=== PATIENT | female | born 1960 | race Caucasian/White ===

== ENCOUNTER 2021-08-18 06:00 | Outpatient (RCR) | payer MEDICARE, SELFPAY | END 2021-08-26 23:59 | disposition home or self-care (01) | LOC: GPT 06:00 | PROVIDERS: Referring Provider Nurse Practitioner Family; Visit Provider Nurse Practitioner Family | DX: M79.7 Fibromyalgia (principal); M62.81 Muscle weakness (generalized) | CPT/HCPCS: 97110; 97140; 97162; 97535 ==

== ENCOUNTER → 2022-06-07 08:56 | Outpatient (BNVA) | payer MEDICARE, SELFPAY | PROVIDERS: PCP Nurse Practitioner Family; Visit Provider Nurse Practitioner Family | DX: E11.9 Type 2 diabetes mellitus without complications (principal); I10 Essential (primary) hypertension | CPT/HCPCS: 80053; 80061; 82043; 83036; 84443 ==

== ENCOUNTER 2022-08-20 10:42 | Emergency (ER) | payer MEDICARE, MEDICAID, SELFPAY ==
[2022-08-20 10:45] VITALS: PULSE 81; RESP 16; TEMP 36.6; O2SAT 95; BMI 42.3
--- NOTE | 2022-08-20 11:24 | ED_ITS ---
HPI - Fall General: Chief Complaint: Fall Stated Complaint: fall, head injury, left leg pain Time Seen by Provider: 08/20/22 11:24 History of Present Illness: Ms. Evans is a 62-year-old lady with history of diabetes presented the emergency department for syncopal episode. She reports being at her baseline health and was in the shower. She reached for a towel and does not recall anything between that and waking up on the floor. Reports right-sided headache associated with contusion and also bilateral leg pain worse on the left with a bruise. Denies known preceding events. Intensity of symptoms is moderate. No other specific changes in health, exacerbating, or alleviating factors identified. Onset (ago): minute(s) Fall from: standing Place fall occurred: home Loss of consciousness: Yes Prolonged down time: unclear Symptoms prior to fall: none Location of injury: head Severity: moderate Review of Systems General: Reports: 10 or more systems reviewed and unremarkable except in HPI and below PFSH ED PFSH: Medical History Depression Diabetes Family History Father Diabetes CAD (coronary artery disease) Social History Smoking and tobacco status: never smoked Substance/Drug Use: never Physical Exam Const: COMMON NORMALS: alert GENERAL APPEARANCE: cooperative and well developed HENMT: COMMON NORMALS: normocephalic HEAD & SCALP: normocephalic OTHER: Right-sided parietal occipital contusion and hematoma, tenderness to palpation. Eye: COMMON NORMALS: conjunctivae normal CONJUNCTIVA: Yes conjunctivae normal SCLERA: sclerae normal Neck/C-Spine: COMMON NORMALS: supple GENERAL: Yes trachea midline Resp: COMMON NORMALS: clear to auscultation bilaterally EFFORT & INSPECTION: Yes able to speak in complete sentences AUSCULTATION: clear to auscultation bilaterally Cardio: COMMON NORMALS: regular rate and regular rhythm RATE: regular rate RHYTHM: regular rhythm GI: COMMON NORMALS: Soft to palpation PALPATION: Yes Soft to palpation and No Tenderness to palpation present (GI) PERCUSSION: normal to percussion Extremity: NARRATIVE EXTREMITY EXAM: Left inferior holm contusion and tenderness palpation GENERAL: Yes normal exam except as noted and No edema Neuro: COMMON NORMALS: moves all extremities SENSORIUM/ORIENTATION: Yes alert and No Orientation impaired Psych: COMMON NORMALS: mental status grossly normal and Normal thought process present THOUGHT PROCESS: Normal thought process present Course Vital Signs: Vital signs: Vital Signs Temperature 97.9 F 08/20/22 10:45 Pulse Rate 67 08/20/22 15:30 Respiratory Rate 16 08/20/22 15:30 Blood Pressure 149/76 08/20/22 15:30 Pulse Oximetry 97 08/20/22 15:30 Oxygen Delivery Me thod Room Air 08/20/22 15:30 MDM - Fall Medical Decision Making 62-year-old lady presenting with syncope and fall. Exam as above. Head to toe exam performed. EKG notable for sinus rhythm with normal axis and intervals, no STEMI. Labs with no leukocytosis, normal hemoglobin and platelet count. No significant metabolic derangement. Negative initial and repeat troponin. No convincing e vidence of UTI. Imaging ordered based on physical exam findings. No acute internal injury identified on head CT or cervical spine CT read x-ray of tibia and fibula are negative for fracture. Patient improved with analgesia. I discussed disposition/evaluation options for syncope and patient prefers outpatient management. The results of ED evaluation were discussed with the patient including pr escriptions and/or symptomatic cares (if applicable) including appropriate and responsible use, followup plan, and return precautions. The patient verbalized understanding and felt safe for discharge. Medical Records I reviewed the patient's medical records. Lab Data I reviewed the patient's lab results. 08/20/22 12:22 08/20/22 12:22 Radiology Impressions Cervical Spine CT 08/20/22 11:36 IMPRESSION: 1. No CT evidence of acute cervical spine traumatic injury. 2. Additional findings, as above. Head CT 08/20/22 11:36 IM[address]: 1[address] evidence of acute intracranial pathology. 2. Additional findings, as above. Tibia/Fibula X-Ray 08/20/22 11:36 IMPRESSION: 1. No acute findings. 2. Metallic screw in the calcaneus Laboratory Results WBC 9.7 10^3/uL (4.0-10.0) 08/20/22 12:22 RBC 3.90 10^6/uL (4.1-5.3) L 08/20/22 12:22 Hgb 11.7 g/dL (11.5-15.3) 08/20/22 12:22 Hct 38.2 % (37.0-47.0) 08/20/22 12:22 MCV 97.9 fl (81-99) 08/20/22 12:22 MCH 30.0 pg (28.0-34.0) 08/20/22 12:22 MCHC 30.6 g/dL (30.0-36.0) 08/20/22 12:22 RDW 13.4 % (12.1-15.1) 08/20/22 12:22 Plt Count 172 10^3/cmm (130-400) 08/20/22 12:22 MPV 11.7 fL (7.4-10.4) H 08/20/22 12:22 Neut % (Auto) 80.2 % 08/20/22 12:22 Lymph % (Auto) 9.5 % 08/20/22 12:22 [place] % (Auto) 6.6 % 08/20/22 12:22 Eos % (Auto) 2.8 % 08/20/22 12:22 Baso % (Auto) 0.5 % 08/20/22 12:22 Neut # (Auto) 7.73 10^3/uL (1.8-7.7) H 08/20/22 12:22 Lymph # (Auto) 0.9 10^3/uL (0.8-4.8) 08/20/22 12:22 [place] # (Auto) 0.6 10^3/uL (0.2-0.9) 08/20/22 12:22 Eos # (Auto) 0.3 10^3/uL (0.0-0.8) 08/20/22 12:22 Baso # (Auto) 0.1 10^3/uL (0.0-0.1) 08/20/22 12:22 Nucleated RBC % (auto) 0 % 08/20/22 12:22 Nucleated RBCs # 0.0 /100WBC 08/20/22 12:22 Sodium 140 mmol/L (136-145) 08/20/22 12:22 Potassium 4.6 mmol/L (3.5-5.1) 08/20/22 12:22 Chloride 101 mmol/L (98-107) 08/20/22 12:22 Carbon Dioxide 26 mmol/L (22-29) 08/20/22 12:22 Anion Gap 17.6 (5-19) 08/20/22 12:22 BUN 19 mg/dL (8-23) 08/20/22 12:22 Creatinine 0.8 mg/dL (0.5-0.9) 08/20/22 12:22 GFR Calculation 72.7 mL/min (90-130) L 08/20/22 12:22 Glucose 145 mg/dL (65-115) H 08/20/22 12:22 Calculated Osmolality 295 mOsm/kg (285-295) 08/20/22 12:22 Calcium 9.2 mg/dL (8.5-10.5) 08/20/22 12:22 Magnesium 1.9 mg/dL (1.7-2.3) 08/20/22 12:22 Troponin T Baseline 6 ng/L (0-10) 08/20/22 12:22 Troponin T 120 Minute 6.00 ng/L (0-10) 08/20/22 14:13 Delta Troponin T 0 ABS# (0-10) 08/20/22 14:13 Discharge Plan Discharge Patient Disposition: Home Clinical Impression: Syncope, Contusion of left leg, Closed head injury, Hematoma of right parietal scalp Condition: Stable Prescriptions: New ondansetron 4 mg tablet,disintegrating 4 mg PO Q8H PRN (Reason: nausea and vomiting) Qty: 15 0RF oxycodone 5 mg tablet 5 mg PO Q4H PRN (Reason: pain) Qty: 10 0RF No Action dexlansoprazole [Dexilant] 60 mg capsule,biphase delayed releas 60 mg PO DAILY metformin 1,000 mg tablet 1,000 mg PO BID Januvia 100 mg tablet 100 mg PO DAILY hydrochlorothiazide 25 mg tablet 25 mg PO QAM pravastatin 20 mg tablet 20 mg PO DAILY meloxicam 15 mg tablet 15 mg PO DAILY sertraline 100 mg tablet 100 mg PO DAILY gabapentin 300 mg capsule 300 mg PO DAILY aspirin 81 mg tablet,delayed release (DR/EC) 81 mg PO DAILY insulin degludec [Tresiba FlexTouch U-200] 200 unit/mL (3 mL) insulin pen 56 unit SUBCUT BID Qty: 18 11RF cyclobenzaprine 10 mg tablet 10 mg PO TID Qty: 30 0RF losartan 100 mg tablet 100 mg PO DAILY Qty: 90 3RF Osteo Bi-Flex Triple Strength 750 mg-644 mg- 30 mg-1 mg Tablet 1 tab PO DAILY Discharge Orders: Discharge ED (Routine); Ordered 08/20/22 Ordered By: Steve Arndt Other Ambulatory Orders: ECG holter monitor 7 Days (Routine) Timeframe: 3 Days Facility: [facility] - Location: Radiology Ordered By: Steve Arndt Referrals: Dalia Osorio, [employer] [Primary Care Provider] - Discharge Diet: Usual diet Discharge Activity: Increase activity as tolerated Patient Instructions: Syncope (ED), Head Injury (ED), Contusion in Adults (ED), Opioid Safety Activity Restrictions/Additional Instructions: Thank you for visiting the emergency department. You were seen and evaluated for syncope. The exact cause your symptoms is unclear as discussed however does require outpatient management and follow-up. Please follow-up with your primary care provider. I will order an outpatient Holter monitor. You may use [id number] medications such as acetaminophen and ibuprofen for pain however please do not exceed the daily recommended dosage as listed on the packaging and please keep in mind that many namebrand medications contain the same active ingredients. Please avoid these medications if previously instructed to do so by another physician due to other underlying medical condition. I will prescribe oxycodone for uncontrolled pain. Use this cautiously and do not combine it with other sedating medications or substances. Return for uncontrolled symptoms, recurrent syncope, chest pain, shortness of breath, or anything else that you are concerned about and feel needs emergency department evaluation. Coding Level of Care Code ED Music Adapter for Nely Pulido
--- NOTE | 2022-08-20 11:36 | XRR_ITS ---
PROCEDURE INFORMATION: Exam: XR Left Tibia and Fibula Exam date and time: 08/20/2022 11:46 AM Age: 62 years old Clinical indication: Injury or trauma; Fall; Blunt trauma; Lower leg; Left; Additional info: Fall, contusion TECHNIQUE: Imaging protocol: Radiologic exam of the left tibia and fibula. Views: 2 views. COMPARISON: No relevant prior studies available. FINDINGS: Bones/joints: Metallic screw is seen in the calcaneus. Otherwise negative for acute bony abnormality. Soft tissues: Normal. XR/XR tibia fibula LT 2V [id number] IMPRESSION: 1. No acute findings. 2. Metallic screw in the calcaneus
--- NOTE | 2022-08-20 11:36 | CTR_ITS ---
PROCEDURE INFORMATION: Exam: CT Head Without Contrast Exam date and time: 08/20/2022 11:49 AM Age: 62 years old Clinical indication: Injury or trauma; Fall; Blunt trauma (contusions or hematomas); With loss of consciousness; Loss of consciousness for 30 minutes or less; Additional info: Syncope, R head strike TECHNIQUE: Imaging protocol: Computed tomography of the head without contrast. Axial, coronal and sagittal reformatted images were created and reviewed. Radiation optimization: All CT scans at this facility use at least one of these dose optimization techniques: automated exposure control; mA and/or kV adjustment per patient size (includes targeted exams where dose is matched to clinical indication); or iterative reconstruction. REPORTING DATA: Count of CT and Cardiac NM exams in prior 12 months: This patient has received 0 known CTs and 0 known cardiac nuclear medicine studies in the 12 months prior to the current study. COMPARISON: No relevant prior studies available. RADIATION DOSE METRICS: Total DLP (mGy-cm): 898.93 FINDINGS: Brain: Patchy areas of hypoattenuation in the periventricular and subcortical white matter, consistent with chronic small vessel ischemic disease. No CT evidence of acute intracranial hemorrhage or acute territorial infarction. No significant mass effect or midline shift. Basal cisterns patent. Cerebral ventricles: Prominence of the cortical sulci, cisterns and ventricular system, consistent with cerebral and cerebellar volume loss. Paranasal sinuses: Unremarkable. No fluid levels. Mastoid air cells: Grossly unremarkable. Bones/joints: No acute osseous abnormality. Soft tissues: Right parieto-occipital scalp swelling. Vasculature: Calcific atherosclerotic disease in the cavernous internal carotid arteries. CT/CT head wo con* [id number] IMPRESSION: 1. No CT evidence of acute intracranial pathology. 2. Additional findings, as above.
--- NOTE | 2022-08-20 11:36 | CTR_ITS ---
PROCEDURE INFORMATION: Exam: CT Cervical Spine Without Contrast Exam date and time: 08/20/2022 11:49 AM Age: 62 years old Clinical indication: Injury or trauma; Fall; Blunt trauma; Additional info: Syncope TECHNIQUE: Imaging protocol: Computed tomography of the cervical spine without contrast. Axial, coronal and sagittal reformatted images were created and reviewed. Radiation optimization: All CT scans at this facility use at least one of these dose optimization techniques: automated exposure control; mA and/or kV adjustment per patient size (includes targeted exams where dose is matched to clinical indication); or iterative reconstruction. REPORTING DATA: Count of CT and Cardiac NM exams in prior 12 months: This patient has received 0 known CTs and 0 known cardiac nuclear medicine studies in the 12 months prior to the current study. COMPARISON: No relevant prior studies available. RADIATION DOSE METRICS: Total DLP (mGy-cm): 520.9 FINDINGS: Bones/joints: Osteopenia. Straightening of the normal cervical lordosis. No CT evidence of acute fracture, dislocation or subluxation. Alignment anatomic. Vertebral body heights maintained. Mild multilevel degenerative changes, characterized by disc space narrowing, osteophytosis and uncovertebral and facet joint hypertrophy. Mild multilevel spinal canal and neural foraminal narrowing. Lungs: Grossly unremarkable. Soft tissues: Grossly unremarkable. CT/CT cervical spin wo con* [id number] IMPRESSION: 1. No CT evidence of acute cervical spine traumatic injury. 2. Additional findings, as above.
--- NOTE | 2022-08-20 12:02 | ECG_ITS ---
[facility] Test Date: 2022-08-20 Pat Name: Ashly Evans Department: Room: Gender: Female [employer] Operator: : 1960 Requested By: Steve Arndt Order Number: [id number] Cerna MD: Sean Valadez M.D. Measurements Intervals [place] Rate: 77 P: 54 [place]: 184 QRS: 58 QRSD: 93 T: 57 QT: 379 QTc: 430 Interpretive Statements SINUS RHYTHM No previous ECG available for comparison Electronically Signed On 08-20-2022 12:27:50 CDT by Sean Valadez M.D. [id number]
[2022-08-20 12:32] VITALS: RESP 16
[2022-08-20] MEDS: morphine 4 mg/mL SDV 1 mL IVP (12:32)
[2022-08-20 12:55] LABS: Basophils # 0.1 10^3/uL (0.0-0.1); Basophils % 0.5 %; Eosinophils # 0.3 10^3/uL (0.0-0.8); Eosinophils % 2.8 %; Hematocrit 38.2 % (37.0-47.0); Hemoglobin 11.7 g/dL (11.5-15.3); Lymphocytes # 0.9 10^3/uL (0.8-4.8); Lymphocytes % 9.5 %; Mean Corpuscular HGB Conc 30.6 g/dL (30.0-36.0); Mean Corpuscular Volume 97.9 fl (81-99); Mean Platelet Volume 11.7 fL (7.4-10.4); Monocytes # 0.6 10^3/uL (0.2-0.9); Monocytes % 6.6 %; Neutrophils # 7.73 10^3/uL (1.8-7.7); Neutrophils % 80.2 %; Nucleated Red Blood Cells % 0 %; Platelet Count 172 10^3/cmm (130-400); Red Cell Distribution Width 13.4 % (12.1-15.1); White Blood Count 9.7 10^3/uL (4.0-10.0)
[2022-08-20 13:19] LABS: Blood Urea Nitrogen 19 mg/dL (8-23); Calcium 9.2 mg/dL (8.5-10.5); Carbon Dioxide 26 mmol/L (22-29); Chloride 101 mmol/L (98-107); Glomerular Filtration Rate 72.7 mL/min (90-130); Glucose 145 mg/dL (65-115); Magnesium 1.9 mg/dL (1.7-2.3); Osmolality Calculated 295 mOsm/kg (285-295); Sodium 140 mmol/L (136-145)
[2022-08-20 13:21] LABS: Anion Gap 17.6 (5-19); Potassium 4.6 mmol/L (3.5-5.1)
[2022-08-20 13:24] LABS: Troponin(5th) Baseline 6 ng/L (0-10)
--- NOTE | 2022-08-20 13:36 | ECG_ITS ---
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 Measurements Intervals [place] Rate: 75 P: 58 [place]: 177 QRS: 66 QRSD: 105 T: 63 QT: 404 QTc: 454 Interpretive Statements SINUS RHYTHM Compared to ECG 08/20/2022 12:02:31 No significant changes Electronically Signed On 08-20-2022 14:12:25 CDT by Sean Valadez M.D. [id number]
[2022-08-20 15:30] VITALS: BP 149/76; PULSE 67; RESP 16; O2SAT 97
[2022-08-20 15:36] LABS: Troponin 5 2HR Delta 0 ABS# (0-10)
== END 2022-08-20 16:01 | disposition home or self-care (01) ==
PROVIDERS: Emergency Provider Emergency Medicine; PCP Nurse Practitioner Family
DX: R55 Syncope and collapse (principal); S09.8XXA Other specified injuries of head, initial encounter; S80.12XA Contusion of left lower leg, initial encounter; S00.03XA Contusion of scalp, initial encounter; Z79.82 Long term (current) use of aspirin; Z79.4 Long term (current) use of insulin; Z79.84 Long term (current) use of oral hypoglycemic drugs; E11.9 Type 2 diabetes mellitus without complications; W18.39XA Other fall on same level, initial encounter
CPT/HCPCS: 36415; 70450; 72125; 73590; 80048; 83735; 84484; 85025; 93005; 96374; 99285; J2270

== ENCOUNTER → 2022-08-24 09:41 | Outpatient (BNVA) | payer MEDICARE, MEDICAID, SELFPAY | PROVIDERS: PCP Nurse Practitioner Family; Visit Provider Family Medicine | DX: R31.9 Hematuria, unspecified (principal); I10 Essential (primary) hypertension; E11.9 Type 2 diabetes mellitus without complications; Z68.41 Body mass index [BMI] 40.0-44.9, adult | CPT/HCPCS: 81003 ==

== ENCOUNTER → 2022-10-27 09:42 | Outpatient (BNVA) | payer MEDICARE, MEDICAID, SELFPAY | PROVIDERS: PCP Nurse Practitioner Family; Visit Provider Nurse Practitioner Family | DX: R30.0 Dysuria (principal); R41.82 Altered mental status, unspecified; N39.0 Urinary tract infection, site not specified; R31.9 Hematuria, unspecified | CPT/HCPCS: 81003; 87077; 87086; 87184 ==

== ENCOUNTER → 2022-11-15 10:20 | Outpatient (BNVA) | payer MEDICARE, MEDICAID, SELFPAY | PROVIDERS: PCP Nurse Practitioner Family; Visit Provider Nurse Practitioner Family | DX: N39.0 Urinary tract infection, site not specified (principal); R31.9 Hematuria, unspecified; E11.9 Type 2 diabetes mellitus without complications | CPT/HCPCS: 81003; 83036 ==

== ENCOUNTER 2022-11-24 13:26 | Outpatient (CLI) | payer MEDICARE, MEDICAID, SELFPAY ==
--- NOTE | 2022-11-24 13:31 | XR_ITS ---
WS: [email or web address] Lumbar spine, 3 views, 11/24/2022 Clinical Data: W19.XXXA - Unspecified fall, initial encounter Comparison: None. Findings: There is a compression fracture of the L1 vertebral body with loss of greater than 50% of the vertebr al body height. There are osteophytes of all the lumbar vertebral bodies. There is disc narrowing at T12-L1. There is osteoporosis of all the lumbar vertebral bodies. There are post surgical cholecystec tamir clips in the right upper quadrant. Impression: 1. Compression fracture of L1 vertebral body involving more than 50% of the vertebral body height. 2. Diffuse osteoarthritis and osteoporosis. 3. Degenerative disc narrowing at T12-L1.
--- NOTE | 2022-11-24 13:31 | XR_ITS ---
WS: [email or web address] Bilateral hips, 2 views each, 11/24/2022 Clinical Data: W19.XXXA - Unspecified fall, initial encounter Comparison: None. Findings: Right hip: No fractures or dislocations are seen. The right hip joint shows no erosion, sclerosis, narrowing or fragmentation of the right femoral head. There is a right acetabular lip. The soft tissues are normal . Left hip: There are no fractures or dislocations. The left hip joint shows no erosion, sclerosis, narrowing or fragmentation of the left femoral head. There is a small left acetabular lip. The soft tissues are no rmal. Impression: Mild osteoarthritis of both hips.
--- NOTE | 2022-11-24 13:31 | XR_ITS ---
WS: [email or web address] Thoracic spine, 3 views, 11/24/2022 Clinical Data: W19.XXXA - Unspecified fall, initial encounter Comparison: None. Findings: No thoracic compression fractures are seen. There is a compression fracture of the superior aspect of the L1 vertebral body with disc narrowing at T12-L1 the disc heights are normal. There is osteoarthritis of all the thoracic vertebral bodies. There are soft tissue densities through out both lungs which are probably granulomas. Impression: 1. Negative for thoracic compression fractures. 2. Possible L1 compression fracture. 3. Probable granulomatous in both lungs. 4. Osteoarthritis of the thoracic vertebral bodies.
== END 2022-11-24 13:27 | disposition home or self-care (01) ==
PROVIDERS: PCP Nurse Practitioner Family; Visit Provider Nurse Practitioner Family
DX: M54.6 Pain in thoracic spine (principal); M47.894 Other spondylosis, thoracic region; M81.0 Age-related osteoporosis without current pathological fracture; M54.50 Low back pain, unspecified; M16.0 Bilateral primary osteoarthritis of hip
CPT/HCPCS: 72072; 72100; 73523

== ENCOUNTER → 2022-12-06 08:54 | Outpatient (BNVA) | payer MEDICARE, MEDICAID, SELFPAY | PROVIDERS: PCP Nurse Practitioner Family; Referring Provider Nurse Practitioner Family; Visit Provider Orthopaedic Surgery | DX: S22.089A Unspecified fracture of T11-T12 vertebra, initial encounter for closed fracture (principal); X58.XXXA Exposure to other specified factors, initial encounter | CPT/HCPCS: 72100; 99204 ==

== ENCOUNTER 2022-12-07 15:34 | Outpatient (CLI) | payer MEDICARE, MEDICAID, SELFPAY ==
--- NOTE | 2022-12-07 16:00 | MR_ITS ---
WS: [email or web address] MRI THORACIC SPINE WITHOUT CONTRAST TECHNIQUE: Sagittal T1, T2 and STIR imaging. Axial T2 imaging. Noncontrast imaging obtained. CLINICAL INFORMATION: compression fracture COMPARISON: Radiograph 11/24/2022 FINDINGS: Counting performed from the craniocervical junction. Mild thoracic kyphosis. Acute compression fracture superior T12 with diffuse edema. Minimal retropuls ion of the posterior superior cortex results in mild central canal stenosis. No high-grade central ca nal narrowing. Cord signal appears normal. Loss of approximately 20% vertebral body height. No other acute appearing compression fractures. A few tiny disc protrusions in the mid thoracic spine. Normal caliber thoracic aorta. Moderate facet arthropathy lower thoracic spine. Small disc protrusion s in the cervical spine on the client support professional imaging at C3-C4 and C4-C5. IMPRESSION: Counting performed from the craniocervical junction. 1. Acute compression fracture involving the T12 vertebral body with mild retropulsion of the posteri or superior cortex with mild central canal stenosis. Loss of approximate 20% vertebral body height. 2. Diffuse edema in the T12 vertebral body with fracture cleft in the superior endplate and edema in the T11-T12 disc space. 3. No other acute appearing compression fractures. 4. Cord signal is normal.
--- NOTE | 2022-12-07 16:45 | MR_ITS ---
WS: [email or web address] MRI LUMBAR SPINE NONCONTRAST TECHNIQUE: Sagittal T1, T2 and STIR imaging. Axial T1 and T2 imaging. CLINICAL INFORMATION: compression fracture COMPARISON: None. FINDINGS: Mild lumbar curve. Acute compression of T12 vertebral body superior endplate with diffuse edema also described on the concurrent MRI thoracic spine with loss of approximately 20% vertebral body height. Fracture cleft in the superior endplate with edema in the T11-T12 disc space. No high-grade central c anal stenosis. Grade 1 anterolisthesis L5 on S1 with chronic bilateral spondylolysis with slight ante rolisthesis. L1-L2: Mild disc bulging. Slight effacement of the ventral thecal sac. Mild facet arthropathy. Spinal canal and foramen are patent. L2-L3: Mild disc bulging with slight effacement of the ventral thecal sac. Mild facet arthropathy. Mi ld RIGHT greater than LEFT foraminal narrowing. L3-L4: Mild annular bulging. Slight effacement of the ventral thecal sac. Slight impingement traversi ng L4 nerve roots bilaterally. Mild central canal stenosis. Moderate facet arthropathy. Mild LEFT gre ater than RIGHT foraminal narrowing. L4-L5: Mild annular bulging. Impingement on the RIGHT subarticular recess and traversing RIGHT L5 ner ve root. Mild RIGHT and no significant LEFT foraminal narrowing. Moderate facet arthropathy. L5-S1: Chronic spondylolysis with slight anterolisthesis. Mild annular bulging. Slight effacement of the ventral thecal sac. Mild bilateral foraminal narrowing. Moderate facet arthropathy. Visualized pelvic bony structures: Normal. Paravertebral soft tissues: Normal. IMPRESSION: 1. Acute compression fracture T12 vertebral body also described on thoracic spine MRI. 2. Grade 1 anterolisthesis L5 on S1 with chronic bilateral spondylolysis and slight anterolisthesis 3. Mild central canal stenosis L3-4 with narrowing of the subarticular recess bilaterally. 4. Broad-based RIGHT paracentral protrusion L4-5 impinges the traversing RIGHT L5 nerve root in the subarticular recess. 5. Moderate facet arthropathy L3-L5. 6. Otherwise mild foraminal narrowing described above.
== END 2022-12-07 15:35 | disposition home or self-care (01) ==
PROVIDERS: PCP Nurse Practitioner Family; Visit Provider Orthopaedic Surgery
DX: S22.080A Wedge compression fracture of T11-T12 vertebra, initial encounter for closed fracture (principal); S32.000A Wedge compression fracture of unspecified lumbar vertebra, initial encounter for closed fracture; W19.XXXA Unspecified fall, initial encounter; M51.34 Other intervertebral disc degeneration, thoracic region; M51.36 Other intervertebral disc degeneration, lumbar region; R52 Pain, unspecified; M43.07 Spondylolysis, lumbosacral region; M48.07 Spinal stenosis, lumbosacral region; M48.04 Spinal stenosis, thoracic region
CPT/HCPCS: 72146; 72148

== ENCOUNTER → 2022-12-13 09:47 | Outpatient (BNVA) | payer MEDICARE, MEDICAID, SELFPAY | PROVIDERS: PCP Nurse Practitioner Family; Visit Provider Orthopaedic Surgery | DX: M54.9 Dorsalgia, unspecified; E11.9 Type 2 diabetes mellitus without complications; S32.000A Wedge compression fracture of unspecified lumbar vertebra, initial encounter for closed fracture; X58.XXXA Exposure to other specified factors, initial encounter | CPT/HCPCS: 36415; 80053; 81001; 83036; 85025; 99214 ==

== ENCOUNTER → 2022-12-28 10:14 | Outpatient (BNVA) | payer MEDICARE, MEDICAID, SELFPAY | PROVIDERS: PCP Nurse Practitioner Family; Visit Provider Family Medicine | DX: Z01.818 Encounter for other preprocedural examination (principal) | CPT/HCPCS: 80048 ==

== ENCOUNTER 2022-12-30 05:44 | Day surgery (SDC) | payer MEDICARE, MEDICAID, SELFPAY ==
[2022-12-30] VITALS (10 sets, daily range): BP systolic 124–195; BP diastolic 73–121; PULSE 64–102; RESP 15–23; TEMP 36.1–36.2; O2SAT 92–96; BMI 42.3
--- NOTE | 2022-12-30 05:49 | SC_ITS ---
WS: [email or web address] C-ARM RADIOGRAPHS THORACOLUMBAR REGION.; 5 IMAGES HISTORY: Thoracic 12 kyphoplasty COMPARISON: MRI 12/07/2022 Kyphoplasty has been performed at what is probably the T12 vertebral body. IMPRESSION: Intraoperative kyphoplasty performed at T12.
[2022-12-30] MEDS: sodium chloride 0.9% 1,000 ML 30 ML IV (06:14)
[2022-12-30] MEDS: vancomycin 1,000 MG in sodium chloride 0.9% 250 ML 250 MG IV (06:17)
[2022-12-30 06:19] LABS: Glucose Point of Care 133 mg/dL (70-110)
--- NOTE | 2022-12-30 06:33 | W.PM.OPSUD ---
Surgery/Procedure H&P Update DATE OF PROCEDURE: December 30, 2022 DATE H&P PERFORMED: 12/28/22 H&P UPDATE INFORMATION: I have reviewed H&P completed within last 30 days, I have examined patient prior to procedure and No changes to prior documentation PREOP DIAGNOSIS: Thoracic 12 compression fracture PLANNED PROCEDURE: Operation Date: 12/30/22 07:00 Proposed Procedures p T12 Kyphoplasty with Osteocool(Not Applicable) - Will Coffey DO
--- NOTE | 2022-12-30 06:54 | ANES.PREANE2 ---
Pre-Anesthetic Assessment Height/Weight: Height 1.88 m Weight 149.685 kg Temp Pulse Resp BP Pulse Ox O2 Del Method 97.2 F L 86 16 131/90 95 Room Air 12/30/22 06:02 12/30/22 06:02 12/30/22 06:02 12/30/22 06:19 12/30/22 06:02 12/30/22 06:02 Preop Diagnosis: Thoracic 12 compression fracture Operation Date: 12/30/22 07:00 Proposed Procedures p T12 Kyphoplasty with Osteocool(Not Applicable) - Will Coffey DO Familial anesthetic complications: None Was Beta Pauly taken within 24 hours: N/A Was Clonidine taken within 24 hours: N/A Last intake: Intake Last Liquid Date 12/29/22 Last Liquid Time 21:30 Last Solid Date 12/29/22 Last Solid Time 21:00 Social No alcohol and No tobacco Exam alert, oriented x 3, clear to auscultation bilaterally and regular rate & rhythm Airway Mallampati: Class IV Dentition: full Pulmonary Sleep Apnea CV/HEM Hypertension Metabolic Diabetes Mellitus and Morbid Obesity Neuropsych tremors Anesthetic Plan ASA status: 3 Anesthesia: General Risk of > 500 ml blood loss (7ml/kg in children): No Medications/Allergies Home Medications Medication Instructions Recorded Confirmed Last Taken Type aspirin 81 mg tablet,delayed 81 mg PO DAILY 06/01/22 12/29/22 12/27/22 History release hydrochlorothiazide 25 mg tablet 25 mg PO QAM 06/01/22 12/30/22 12/29/22 07:00 History metformin 1,000 mg tablet 1,000 mg PO BID 06/01/22 12/30/22 12/29/22 07:00 History pravastatin 20 mg tablet 20 mg PO DAILY 06/01/22 12/29/22 12/23/22 History sertraline 100 mg tablet 100 mg PO DAILY 06/01/22 12/30/22 12/29/22 17:00 History losartan 100 mg tablet 100 mg PO DAILY #90 tabs 07/21/22 12/30/22 12/29/22 07:00 Rx glucosamine 750 [id number] 1 tab PO DAILY 08/20/22 12/29/22 12/16/22 History no1 644 mg-C 30 mg-francine 1 mg tablet (Osteo Bi-Flex Triple Strength) ondansetron 4 mg disintegrating 4 mg PO Q8H PRN nausea and 08/20/22 12/29/22 Unknown Rx tablet vomiting #15 tabs cyclobenzaprine 10 mg tablet 10 mg PO TID #30 tabs 12/05/22 12/29/22 12/27/22 Rx tramadol 50 mg tablet 50 mg PO Q6H PRN pain #20 tabs 12/05/22 12/29/22 Unknown Rx dexlansoprazole 60 mg 60 mg PO DAILY #90 caps 12/12/22 12/30/22 12/29/22 17:00 Rx capsule,biphase delayed release (Dexilant) gabapentin 300 mg capsule 300 mg PO BID #180 caps 12/12/22 12/30/22 12/29/22 17:00 Rx meloxicam 15 mg tablet 15 mg PO DAILY #90 tabs 12/12/22 12/29/22 12/23/22 Rx semaglutide 0.25 mg or 0.5 mg (2 0.25 mg (0.368 mL) SUBCUT .weekly 12/12/22 12/30/22 12/22/22 Rx mg/3 mL) subcutaneous pen injector 1 month #3 mL (Ozempic) insulin degludec 200 unit/mL (3 58 unit SUBCUT BID 12/28/22 12/30/22 12/29/22 17:00 History mL) subcutaneous pen (Tresiba FlexTouch U-200 insulin) Allergies Allergy/AdvReac Type Severity Reaction Status Date / Time Penicillins Allergy ALGY-Anaphy Verified 12/30/22 05:55 laxis pregabalin [From Lyrica] Allergy ADR/ALGY-Pa Verified 12/30/22 05:55 lpitations Current Medications Generic Name Dose Route Start Last Admin Trade Name Freq PRN Reason Stop Dose Admin Sodium Chloride 1,000 mls @ 30 mls/hr 12/30/22 06:00 12/30/22 06:14 Sodium Chloride 0.9% IV 12/31/22 05:59 30 mls/hr .Q24H ANDREIA Administration PFSH Anesthesia Medical History Depression Diabetes Fibromyalgia Family History Father Diabetes CAD (coronary artery disease) Social History Smoking and tobacco/nicotine status: never used tobacco/nicotine Substance/Drug Use: never Data Anesthesia Cardiac Studies: No Data to Display
[2022-12-30] MEDS: iohexol 300 mg/mL 50 mL Btl 15 ML IV (07:43)
[2022-12-30] MEDS: lidocaine-epi 1% PF 1:200,000 30 mL SDV INJECTION (07:45)
--- NOTE | 2022-12-30 08:12 | PM.OP ---
Operative Report Date of procedure: December 30, 2022 Pre-op diagnosis: T12 wedge osteoporotic compression fracture Post-op diagnosis: same Procedure done: T12 kyphoplasty Surgeon: Will Coffey DO Estimated blood loss (mL): 5 Procedure: T12 kyphoplasty Patient was brought to the operative suite after going anesthesia placed in the prone position. All areas impingement well-padded. The biplanar fluoroscopy was brought in the T12 vertebrae was aligned. The patient was then prepped and draped normal sterile fashion. Skin incision made over both the right and left pedicle. The awl was inserted and followed by the drill followed by the balloon this was done bilaterally. The vertebra was then filled with cement watching in AP and lateral fluoroscopy. Once the vertebrae had good fill the tubes were pulled out. And then AP and lateral fluoroscopy ensured that the cement was in good position. Wounds were irrigated closed with nylon suture. Sterile dressings were applied patient was transferred to the PACU in stable condition.
[2022-12-30] MEDS: HYDROcodone-acetaminophen 5-325 mg Tablet 1 TAB PO (08:55)
--- NOTE | 2022-12-30 09:08 | SUR.PHASEII ---
Patient arrived from PACU with a headache, VS within normal range, no other issues
--- NOTE | 2022-12-30 09:35 | ANE.PACU2 ---
Inpatient post-anesthesia follow up: Airway intact: Yes Vital signs: Temperature 97.0 F Pulse Rate 64 Respiratory Rate 16 Blood Pressure 124/73 Pulse Oximetry 93 Oxygen Delivery Me thod Room Air Oxygen Flow Rate 1 Fraction of Inspir ed Oxygen Hydration adequate: Yes Nausea and vomiting: No Pain level: 1 Mental status: Baseline
--- NOTE | 2022-12-30 10:50 | SUR.PHASEII ---
Called patient back after discharged to inform her of correct appointment time. The card with appointment given to her from clinic and scheduled appointment in computer were different dates and times.
== END 2022-12-30 09:38 | disposition home or self-care (01) ==
PROVIDERS: PCP Nurse Practitioner Family; Visit Provider Orthopaedic Surgery
PROC: (CPT 22513; principal; 2022-12-30 07:00)
DX: S22.080A Wedge compression fracture of T11-T12 vertebra, initial encounter for closed fracture (principal); X58.XXXA Exposure to other specified factors, initial encounter; G47.30 Sleep apnea, unspecified; I10 Essential (primary) hypertension; E11.9 Type 2 diabetes mellitus without complications; E66.01 Morbid (severe) obesity due to excess calories; Z68.41 Body mass index [BMI] 40.0-44.9, adult; Z79.82 Long term (current) use of aspirin; Z79.4 Long term (current) use of insulin
CPT/HCPCS: 22513; 36416; 76000; 82962; J1100; J2405; J2704; J3010; J3370; J3490; J7030; J7050; Q9967

== ENCOUNTER → 2023-01-10 13:39 | Outpatient (BNVA) | payer MEDICARE, MEDICAID, SELFPAY | PROVIDERS: PCP Nurse Practitioner Family; Visit Provider Orthopaedic Surgery | DX: Z47.89 Encounter for other orthopedic aftercare (principal) | CPT/HCPCS: 99024; 99212 ==

== ENCOUNTER → 2023-02-01 14:28 | Outpatient (BNVA) | payer MEDICARE, MEDICAID, SELFPAY | PROVIDERS: PCP Nurse Practitioner Family; Visit Provider Nurse Practitioner Family | DX: R30.0 Dysuria (principal); N30.00 Acute cystitis without hematuria | CPT/HCPCS: 81003; 87077; 87086; 87184 ==

== ENCOUNTER → 2023-02-14 09:30 | Outpatient (BNVA) | payer MEDICARE, MEDICAID, SELFPAY | PROVIDERS: PCP Nurse Practitioner Family; Visit Provider Nurse Practitioner Family | DX: E11.9 Type 2 diabetes mellitus without complications (principal); N30.00 Acute cystitis without hematuria | CPT/HCPCS: 83036 ==

== ENCOUNTER → 2023-02-16 10:53 | Outpatient (BNVA) | payer MEDICARE, MEDICAID, SELFPAY | PROVIDERS: PCP Nurse Practitioner Family; Visit Provider Orthopaedic Surgery | DX: Z47.89 Encounter for other orthopedic aftercare (principal) | CPT/HCPCS: 99213 ==

== ENCOUNTER 2023-04-04 06:00 | Outpatient (RCR) | payer MEDICARE, MEDICAID, SELFPAY | END 2023-04-26 23:59 | disposition home or self-care (01) | LOC: GPT 06:00 | PROVIDERS: Visit Provider Physician Assistant | DX: M25.512 Pain in left shoulder (principal); G89.29 Other chronic pain | CPT/HCPCS: 97110; 97112; 97140; 97162 ==

== ENCOUNTER → 2023-05-20 12:47 | Outpatient (BNVA) | payer MEDICARE, MEDICAID, SELFPAY | PROVIDERS: PCP Nurse Practitioner Family; Visit Provider Family Medicine | DX: R39.9 Unspecified symptoms and signs involving the genitourinary system (principal) | CPT/HCPCS: 81000 ==

== ENCOUNTER → 2023-07-18 09:15 | Outpatient (BNVA) | payer MEDICARE, MEDICAID, SELFPAY | PROVIDERS: PCP Nurse Practitioner Family; Visit Provider Nurse Practitioner Family | DX: I10 Essential (primary) hypertension (principal); E11.9 Type 2 diabetes mellitus without complications; N39.0 Urinary tract infection, site not specified; L98.9 Disorder of the skin and subcutaneous tissue, unspecified | CPT/HCPCS: 80053; 80061; 81000; 83036 ==

== ENCOUNTER → 2023-08-04 07:55 | Outpatient (BNVA) | payer MEDICARE, MEDICAID, SELFPAY | PROVIDERS: PCP Nurse Practitioner Family; Visit Provider Nurse Practitioner Family | DX: D48.5 Neoplasm of uncertain behavior of skin (principal); D22.62 Melanocytic nevi of left upper limb, including shoulder; L81.4 Other melanin hyperpigmentation; L57.8 Other skin changes due to chronic exposure to nonionizing radiation; L57.0 Actinic keratosis | CPT/HCPCS: 11102; 17000; 99203 ==

== ENCOUNTER 2023-08-08 13:00 | Outpatient (CLI) | payer MEDICARE, MEDICAID, SELFPAY ==
--- NOTE | 2023-08-08 13:30 | XR_ITS ---
WS: [id number] SCREENING DEXA SCAN [facility] CLINICAL INFORMATION: S32.000A - Wedge compression fracture of unspecified lumb... COMPARISON: None. FINDINGS: The LEFT forearm bone mineral density measures 0.91. This corresponds to a T score score of 0.4 and Z score of 1.6. Left femoral neck bone mineral density measures 0.974 g/cm2. This corresponds to a T score of -0.3 an d Z score of 0.0. Right femoral neck bone mineral density measures 1.035 g/cm2. This corresponds to a T score 0.2of and Z score of 0.5. Mean femoral neck bone mineral density measures 1.004 g/cm2. This corresponds to a T score of 0.0 and Z score of 0.2. XR/XR DEXA axial skeleton* [id number] IMPRESSION: Normal bone mineralization. Patient's FRAX calculated 10 year probability for major osteoporotic fracture i s 10.9% and osteoporotic hip fracture is 0.5%.
== END 2023-08-08 13:01 | disposition home or self-care (01) ==
LOC: RAD 13:00
PROVIDERS: PCP Nurse Practitioner Family; Visit Provider Nurse Practitioner Family
DX: S32.000A Wedge compression fracture of unspecified lumbar vertebra, initial encounter for closed fracture (principal); Z78.0 Asymptomatic menopausal state
CPT/HCPCS: 77080

== ENCOUNTER → 2023-09-19 10:01 | Outpatient (BNVA) | payer MEDICARE, MEDICAID, SELFPAY | PROVIDERS: PCP Nurse Practitioner Family; Visit Provider Nurse Practitioner Family | DX: N39.0 Urinary tract infection, site not specified (principal) | CPT/HCPCS: 81000 ==

== ENCOUNTER → 2023-10-17 13:37 | Outpatient (BNVA) | payer MEDICARE, MEDICAID, SELFPAY | PROVIDERS: PCP Nurse Practitioner Family; Visit Provider Nurse Practitioner Family | DX: E11.9 Type 2 diabetes mellitus without complications (principal) | CPT/HCPCS: 83036 ==

== ENCOUNTER → 2023-11-06 11:00 | Outpatient (BNVA) | payer MEDICARE, MEDICAID, SELFPAY | PROVIDERS: PCP Nurse Practitioner Family; Visit Provider Nurse Practitioner Family | DX: R25.1 Tremor, unspecified (principal) | CPT/HCPCS: 80076 ==

== ENCOUNTER → 2024-01-29 10:52 | Outpatient (BNVA) | payer MEDICARE, SELFPAY | PROVIDERS: PCP Nurse Practitioner Family; Visit Provider Nurse Practitioner Family | DX: E11.9 Type 2 diabetes mellitus without complications (principal); R35.0 Frequency of micturition; N30.01 Acute cystitis with hematuria | CPT/HCPCS: 81000; 83036; 87077; 87086; 87184 ==

== ENCOUNTER → 2024-02-26 10:30 | Outpatient (BNVA) | payer MEDICARE, SELFPAY | PROVIDERS: PCP Nurse Practitioner Family; Visit Provider Nurse Practitioner Family | DX: R53.83 Other fatigue (principal); I10 Essential (primary) hypertension; E55.9 Vitamin D deficiency, unspecified | CPT/HCPCS: 80053; 80061; 82306; 82607; 84443; 85025 ==

== ENCOUNTER → 2024-04-12 10:52 | Outpatient (BNVA) | payer MEDICARE, SELFPAY | PROVIDERS: PCP Nurse Practitioner Family; Visit Provider Nurse Practitioner Family | DX: R30.0 Dysuria (principal) | CPT/HCPCS: 81000 ==

== ENCOUNTER → 2024-06-20 09:15 | Outpatient (BNVA) | payer MEDICARE, SELFPAY | PROVIDERS: PCP Nurse Practitioner Family; Visit Provider Nurse Practitioner Family | DX: R30.0 Dysuria (principal) | CPT/HCPCS: 81000 ==

== ENCOUNTER → 2024-07-02 11:50 | Outpatient (BNVA) | payer MEDICARE, SELFPAY | PROVIDERS: PCP Nurse Practitioner Family; Visit Provider Nurse Practitioner Family | DX: R31.9 Hematuria, unspecified (principal); N30.01 Acute cystitis with hematuria | CPT/HCPCS: 81000; 87086 ==

== ENCOUNTER 2024-07-28 05:00 | Outpatient (RCR) | payer MEDICARE, SELFPAY | END 2024-08-26 23:59 | disposition home or self-care (01) | LOC: GPT 05:00 | PROVIDERS: PCP Nurse Practitioner Family; Visit Provider Student in an Organized Health Care Education/Training Program | DX: M17.11 Unilateral primary osteoarthritis, right knee (principal) | CPT/HCPCS: 97161 ==

== ENCOUNTER → 2024-07-30 13:30 | Outpatient (BNVA) | payer MEDICARE, SELFPAY | PROVIDERS: PCP Nurse Practitioner Family; Visit Provider Nurse Practitioner Family | DX: E11.9 Type 2 diabetes mellitus without complications (principal); E55.9 Vitamin D deficiency, unspecified | CPT/HCPCS: 80053; 80061; 82043; 82306; 83036 ==

== ENCOUNTER 2024-08-27 05:00 | Outpatient (RCR) | payer MEDICARE, SELFPAY | END 2024-09-26 23:59 | disposition home or self-care (01) | LOC: GPT 05:00 | PROVIDERS: PCP Nurse Practitioner Family; Visit Provider Student in an Organized Health Care Education/Training Program | DX: M17.11 Unilateral primary osteoarthritis, right knee (principal) | CPT/HCPCS: 97110; 97140; 97530 ==

== ENCOUNTER → 2024-09-18 14:15 | Outpatient (BNVA) | payer MEDICARE, SELFPAY | PROVIDERS: PCP Nurse Practitioner Family; Visit Provider Nurse Practitioner Family | DX: N39.0 Urinary tract infection, site not specified (principal) | CPT/HCPCS: 81000; 87077; 87086; 87184 ==

== ENCOUNTER 2024-09-27 05:00 | Outpatient (RCR) | payer MEDICARE, SELFPAY | END 2024-10-27 23:59 | disposition home or self-care (01) | LOC: GPT 05:00 | PROVIDERS: PCP Nurse Practitioner Family; Visit Provider Student in an Organized Health Care Education/Training Program | DX: M17.11 Unilateral primary osteoarthritis, right knee (principal) | CPT/HCPCS: 97110; 97140 ==

== ENCOUNTER → 2024-10-07 14:18 | Outpatient (BNVA) | payer MEDICARE, SELFPAY | PROVIDERS: PCP Nurse Practitioner Family; Visit Provider Nurse Practitioner Family | DX: R30.0 Dysuria (principal) | CPT/HCPCS: 81000 ==

== ENCOUNTER → 2024-11-04 08:30 | Outpatient (BNVA) | payer MEDICARE, SELFPAY | PROVIDERS: PCP Nurse Practitioner Family; Visit Provider Nurse Practitioner Family | DX: N30.01 Acute cystitis with hematuria (principal) | CPT/HCPCS: 81000; 87086 ==

== ENCOUNTER 2024-12-24 11:58 | Outpatient (RCR) | payer SELFPAY | END 2024-12-27 23:59 | disposition home or self-care (01) | LOC: GPT 11:58 | PROVIDERS: PCP Nurse Practitioner Family; Visit Provider Student in an Organized Health Care Education/Training Program | DX: Z47.1 Aftercare following joint replacement surgery (principal); Z96.652 Presence of left artificial knee joint | CPT/HCPCS: 97110; 97112; 97140; 97161; 97530 ==

== ENCOUNTER 2025-01-13 11:53 | Outpatient (RCR) | payer MEDICARE, SELFPAY | END 2025-01-26 23:59 | disposition home or self-care (01) | LOC: GPT 11:53 | PROVIDERS: PCP Nurse Practitioner Family; Visit Provider Student in an Organized Health Care Education/Training Program | DX: Z47.1 Aftercare following joint replacement surgery (principal); Z96.652 Presence of left artificial knee joint | CPT/HCPCS: 97110; 97140; 97530 ==

== ENCOUNTER → 2025-02-04 14:00 | Outpatient (BNVA) | payer MEDICARE, SELFPAY | PROVIDERS: PCP Nurse Practitioner Family; Visit Provider Nurse Practitioner Family | DX: I10 Essential (primary) hypertension (principal); E11.9 Type 2 diabetes mellitus without complications | CPT/HCPCS: 80053; 80061; 82043; 83036 ==

== ENCOUNTER 2025-02-26 11:58 | Outpatient (RCR) | payer MEDICARE, SELFPAY | END 2025-02-26 23:59 | disposition home or self-care (01) | LOC: GPT 11:58 | PROVIDERS: PCP Nurse Practitioner Family; Visit Provider Student in an Organized Health Care Education/Training Program | DX: M25.562 Pain in left knee (principal); M25.462 Effusion, left knee; R26.2 Difficulty in walking, not elsewhere classified; Z96.652 Presence of left artificial knee joint | CPT/HCPCS: 97110; 97140; 97530 ==